=== PATIENT | male | born 1990 | race Caucasian/White ===

== ENCOUNTER 2021-07-29 12:35 | Inpatient (IN) | payer OTHER ==
[2021-07-30 02:20] VITALS: BMI 24.1
[2021-07-30] MEDS ORDERED: MAGNESIUM CITRATE 300 ML BOTTLE PO PRN (03:06)
[2021-07-30] MEDS ORDERED: LOPERAMIDE HCL 2 MG CAPSULE PO PRN (03:06)
[2021-07-30] MEDS ORDERED: guaiFENesin 200 MG/10 ML 10 ML UNIT-DOSE CUPS PO PRN (03:06)
[2021-07-30] MEDS ORDERED: MAGNESIUM HYDROX 2400MG/30ML ORAL SUSPENSION 30 ML CUP PO PRN (03:06)
[2021-07-30] MEDS ORDERED: P-EPHED 60MG/TRIPROLIDI 2.5MG TABLET PO PRN (03:06)
[2021-07-30] MEDS ORDERED: TUBERCULIN PPD 5 TU/0.1ML VIAL ID ONE (04:04)
[2021-07-30] MEDS: CEPHALEXIN MONOHYDRATE 500 MG CAPSULE (UD) PO SCH ×3 (07:08→21:11)
[2021-07-30] MEDS: PRENATAL VITAMINS W/ FOLIC ACID TABLET (FP) PO SCH (10:30)
[2021-07-30] MEDS: NICOTINE 14 MG/24 HOURS TOPICAL PATCH TD SCH (10:31)
[2021-07-30] MEDS: IBUPROFEN 400 MG TABLET (FP) PO PRN (10:32)
[2021-07-30] MEDS: hydrOXYzine PAMOATE 25 MG CAPSULE (FP) PO PRN (10:33)
[2021-07-30] MEDS: BUPRENORPHINE/NALOXONE 8 MG/2 MG FILM PACKET SL SCH ×2 (10:33→21:12)
[2021-07-30 12:20] LABS: HEMATOCRIT 30.9 % (35.4-49); HEMOGLOBIN 10.4 GM/dL (11.7-16.9); MCH 29.4 pg (25.7-33.7); MCHC 33.6 g/dl (32.0-35.9); MEAN CELL VOLUME 87.6 fl (80-96); PLATELET COUNT 352 10^3/uL (134-434); RBC 3.52 M/mm3 (4.00-5.60); RDW 16.7 % (11.9-15.9); WHITE BLOOD COUNT 8.5 K/mm3 (4.0-10.0)
[2021-07-30 12:25] LABS: CALCIUM 9.5 mg/dL (8.5-10.1)
[2021-07-30 12:26] LABS: ALBUMIN 3.1 g/dl (3.4-5.0); BLOOD UREA NITROGEN 19.7 mg/dL (7-18)
[2021-07-30 12:29] LABS: CREATININE 0.8 mg/dL (0.55-1.3)
[2021-07-30 12:31] LABS: BILIRUBIN,TOTAL 0.2 mg/dL (0.2-1); TOT PROT 7.4 g/dl (6.4-8.2)
[2021-07-30] MEDS: GABAPENTIN 400 MG CAPSULE PO SCH ×2 (14:25→21:10)
[2021-07-30] MEDS: METHOCARBAMOL 500 MG TABLET PO SCH ×3 (14:26→21:10)
[2021-07-30 15:08] LABS: SYPHILIS W/ RPR CONF NON-REACTIVE (NONREACTIVE)
[2021-07-30] MEDS ORDERED: INSULIN SLIDING SCALE (NOVOLOG) 1 VIAL SQ SCH (16:30)
[2021-07-30] MEDS: Insulin (LOG) Aspart 100 UNITS/ML VIAL SQ SCH (16:39)
[2021-07-30] MEDS: INSULIN SLIDING SCALE (NOVOLOG) 1 VIAL SQ SCH ×2 (16:40→21:18)
[2021-07-30] MEDS ORDERED: INSULIN (NOVOLOG) ASPART 100 UNITS/ML 10ML VIAL ONE (16:41)
[2021-07-30] MEDS: NICOTINE POLACRILEX 2 MG GUM BC PRN (17:48)
[2021-07-30] MEDS: MELATONIN 5 MG TABLETS PO SCH (21:10)
[2021-07-30] MEDS: THIAMINE HCL 100 MG TABLET (FP) PO SCH (21:11)
[2021-07-30] MEDS: risperiDONE 1 MG TABLET PO SCH (21:12)
[2021-07-30] MEDS ORDERED: MELATONIN 5 MG TABLETS PO SCH (22:00)
[2021-07-30] MEDS ORDERED: INSULIN (LEVEMIR) 100 UNITS/ML UNITS SQ SCH (22:00)
[2021-07-31] MEDS: GABAPENTIN 400 MG CAPSULE PO SCH ×3 (06:29→21:48)
[2021-07-31] MEDS: CEPHALEXIN MONOHYDRATE 500 MG CAPSULE (UD) PO SCH ×3 (06:29→21:47)
[2021-07-31] MEDS: hydrOXYzine PAMOATE 25 MG CAPSULE (FP) PO PRN (06:29)
[2021-07-31] MEDS: Insulin (LOG) Aspart 100 UNITS/ML VIAL SQ SCH ×2 (06:33→16:59)
[2021-07-31] MEDS: INSULIN SLIDING SCALE (NOVOLOG) 1 VIAL SQ SCH ×4 (06:45→21:50)
[2021-07-31] MEDS: NICOTINE POLACRILEX 2 MG GUM BC PRN (09:41)
[2021-07-31] MEDS: NICOTINE 14 MG/24 HOURS TOPICAL PATCH TD SCH (09:41)
[2021-07-31] MEDS: PRENATAL VITAMINS W/ FOLIC ACID TABLET (FP) PO SCH (09:41)
[2021-07-31] MEDS: METHOCARBAMOL 500 MG TABLET PO SCH ×4 (09:41→21:48)
[2021-07-31] MEDS: BUPRENORPHINE/NALOXONE 8 MG/2 MG FILM PACKET SL SCH ×2 (09:41→17:06)
[2021-07-31] MEDS: IBUPROFEN 400 MG TABLET (FP) PO PRN ×2 (09:43→21:49)
[2021-07-31] MEDS: HYDROCHLOROTHIAZIDE 25 MG TABLET (FP) PO SCH (11:58)
[2021-07-31] MEDS ORDERED: INSULIN (NOVOLOG) ASPART 100 UNITS/ML 10ML VIAL ONE ×2 (12:01→21:44)
[2021-07-31] MEDS: COLLOIDAL OATMEAL 1 BAR EACH TP PRN (21:46)
[2021-07-31] MEDS: BACITRACIN 0.9 GM PACKET TP SCH (21:47)
[2021-07-31] MEDS: MELATONIN 5 MG TABLETS PO SCH (21:48)
[2021-07-31] MEDS: risperiDONE 1 MG TABLET PO SCH (21:48)
[2021-07-31] MEDS: THIAMINE HCL 100 MG TABLET (FP) PO SCH (21:48)
[2021-07-31] MEDS: INSULIN (LEVEMIR) 100 UNITS/ML UNITS SQ SCH (21:50)
[2021-08-01] MEDS: CEPHALEXIN MONOHYDRATE 500 MG CAPSULE (UD) PO SCH ×3 (06:29→21:06)
[2021-08-01] MEDS: GABAPENTIN 400 MG CAPSULE PO SCH ×3 (06:29→21:06)
[2021-08-01] MEDS: BUPRENORPHINE/NALOXONE 8 MG/2 MG FILM PACKET SL SCH ×2 (06:29→18:34)
[2021-08-01] MEDS: IBUPROFEN 400 MG TABLET (FP) PO PRN ×3 (06:29→21:07)
[2021-08-01] MEDS: hydrOXYzine PAMOATE 25 MG CAPSULE (FP) PO PRN (06:29)
[2021-08-01] MEDS: Insulin (LOG) Aspart 100 UNITS/ML VIAL SQ SCH ×3 (06:44→16:39)
[2021-08-01] MEDS: INSULIN SLIDING SCALE (NOVOLOG) 1 VIAL SQ SCH ×4 (06:45→21:11)
[2021-08-01] MEDS ORDERED: INSULIN (NOVOLOG) ASPART 100 UNITS/ML 10ML VIAL ONE ×4 (06:49→21:53)
[2021-08-01] MEDS: PRENATAL VITAMINS W/ FOLIC ACID TABLET (FP) PO SCH (09:52)
[2021-08-01] MEDS: METHOCARBAMOL 500 MG TABLET PO SCH ×4 (09:52→21:06)
[2021-08-01] MEDS: BACITRACIN 0.9 GM PACKET TP SCH ×2 (09:52→21:06)
[2021-08-01] MEDS: NICOTINE 14 MG/24 HOURS TOPICAL PATCH TD SCH (09:52)
[2021-08-01] MEDS: HYDROCHLOROTHIAZIDE 25 MG TABLET (FP) PO SCH ×2 (09:53→11:46)
[2021-08-01] MEDS: FERROUS SO4 325 MG TABLET (FP) PO SCH (09:53)
[2021-08-01 11:35] LABS: PH,URINE 6.5 (5.0-8.0); URINE APPEARANCE CLEAR; URINE BILIRUBIN NEGATIVE (NEGATIVE); URINE COLOR YELLOW; URINE GLUCOSE (UA) 3+ (NEGATIVE); URINE KETONE NEGATIVE (NEGATIVE); URINE LEUK ESTERASE NEGATIVE (NEGATIVE); URINE NITRITE NEGATIVE (NEGATIVE); URINE PROTEIN NEGATIVE (NEGATIVE); URINE UROBILINOGEN 0.2 mg/dL (0.2-1.0)
[2021-08-01] MEDS: NICOTINE 10 MG CARTRIDGE (INHALER) IH PRN ×2 (18:34→21:08)
[2021-08-01] MEDS: MELATONIN 5 MG TABLETS PO SCH (21:06)
[2021-08-01] MEDS: risperiDONE 1 MG TABLET PO SCH (21:06)
[2021-08-01] MEDS: THIAMINE HCL 100 MG TABLET (FP) PO SCH (21:06)
[2021-08-01] MEDS: INSULIN (LEVEMIR) 100 UNITS/ML UNITS SQ SCH (21:11)
[2021-08-02] MEDS: BUPRENORPHINE/NALOXONE 8 MG/2 MG FILM PACKET SL SCH ×2 (06:16→17:39)
[2021-08-02] MEDS: CEPHALEXIN MONOHYDRATE 500 MG CAPSULE (UD) PO SCH ×3 (06:17→21:36)
[2021-08-02] MEDS: GABAPENTIN 400 MG CAPSULE PO SCH ×3 (06:19→21:36)
[2021-08-02] MEDS: hydrOXYzine PAMOATE 25 MG CAPSULE (FP) PO PRN (06:20)
[2021-08-02] MEDS: IBUPROFEN 400 MG TABLET (FP) PO PRN ×2 (06:20→18:11)
[2021-08-02] MEDS: Insulin (LOG) Aspart 100 UNITS/ML VIAL SQ SCH ×3 (06:58→17:38)
[2021-08-02] MEDS: INSULIN SLIDING SCALE (NOVOLOG) 1 VIAL SQ SCH ×4 (06:59→21:40)
[2021-08-02] MEDS: NICOTINE 14 MG/24 HOURS TOPICAL PATCH TD SCH (09:29)
[2021-08-02] MEDS: BACITRACIN 0.9 GM PACKET TP SCH ×2 (09:29→21:36)
[2021-08-02] MEDS: HYDROCHLOROTHIAZIDE 25 MG TABLET (FP) PO SCH (09:29)
[2021-08-02] MEDS: METHOCARBAMOL 500 MG TABLET PO SCH ×4 (09:30→21:36)
[2021-08-02] MEDS: PRENATAL VITAMINS W/ FOLIC ACID TABLET (FP) PO SCH (09:30)
[2021-08-02] MEDS: FERROUS SO4 325 MG TABLET (FP) PO SCH (09:30)
[2021-08-02] MEDS: NICOTINE 10 MG CARTRIDGE (INHALER) IH PRN ×3 (09:33→21:39)
[2021-08-02] MEDS ORDERED: INSULIN (NOVOLOG) ASPART 100 UNITS/ML 10ML VIAL ONE ×3 (11:47→21:39)
[2021-08-02] MEDS: risperiDONE 1 MG TABLET PO SCH (21:36)
[2021-08-02] MEDS: MELATONIN 5 MG TABLETS PO SCH (21:37)
[2021-08-02] MEDS: INSULIN (LEVEMIR) 100 UNITS/ML UNITS SQ SCH (21:37)
[2021-08-02] MEDS: THIAMINE HCL 100 MG TABLET (FP) PO SCH (21:38)
[2021-08-03] MEDS: BUPRENORPHINE/NALOXONE 8 MG/2 MG FILM PACKET SL SCH ×2 (06:34→18:49)
[2021-08-03] MEDS: GABAPENTIN 400 MG CAPSULE PO SCH ×3 (06:35→21:08)
[2021-08-03] MEDS: CEPHALEXIN MONOHYDRATE 500 MG CAPSULE (UD) PO SCH (06:35)
[2021-08-03] MEDS: hydrOXYzine PAMOATE 25 MG CAPSULE (FP) PO PRN ×3 (06:35→18:49)
[2021-08-03] MEDS: IBUPROFEN 400 MG TABLET (FP) PO PRN ×3 (06:36→21:10)
[2021-08-03] MEDS: NICOTINE 10 MG CARTRIDGE (INHALER) IH PRN ×3 (06:40→18:50)
[2021-08-03] MEDS: INSULIN SLIDING SCALE (NOVOLOG) 1 VIAL SQ SCH ×4 (06:48→21:13)
[2021-08-03] MEDS: Insulin (LOG) Aspart 100 UNITS/ML VIAL SQ SCH ×3 (06:48→16:37)
[2021-08-03] MEDS: PRENATAL VITAMINS W/ FOLIC ACID TABLET (FP) PO SCH (09:41)
[2021-08-03] MEDS: METHOCARBAMOL 500 MG TABLET PO SCH ×4 (09:41→21:08)
[2021-08-03] MEDS: FERROUS SO4 325 MG TABLET (FP) PO SCH (09:41)
[2021-08-03] MEDS: NICOTINE 14 MG/24 HOURS TOPICAL PATCH TD SCH (09:42)
[2021-08-03] MEDS: BACITRACIN 0.9 GM PACKET TP SCH ×2 (09:42→21:08)
[2021-08-03] MEDS: HYDROCHLOROTHIAZIDE 25 MG TABLET (FP) PO SCH (09:42)
[2021-08-03] MEDS ORDERED: INSULIN (NOVOLOG) ASPART 100 UNITS/ML 10ML VIAL ONE ×3 (12:00→21:52)
[2021-08-03] MEDS: AMOXICILLIN 500 MG CAPSULE (FP) PO SCH ×2 (15:02→21:09)
[2021-08-03] MEDS: ACETAMINOPHEN 325 MG TABLET (FP) PO PRN (18:50)
[2021-08-03] MEDS: THIAMINE HCL 100 MG TABLET (FP) PO SCH (21:08)
[2021-08-03] MEDS: risperiDONE 1 MG TABLET PO SCH (21:08)
[2021-08-03] MEDS: MELATONIN 5 MG TABLETS PO SCH (21:09)
[2021-08-03] MEDS: SULFAMETHOXAZOLE/TRIMETHOPRIM 800MG/160MG D.S. TABLET PO SCH (21:09)
[2021-08-03] MEDS: INSULIN (LEVEMIR) 100 UNITS/ML UNITS SQ SCH (21:13)
[2021-08-04] MEDS ORDERED: INSULIN (NOVOLOG) ASPART 100 UNITS/ML 10ML VIAL ONE ×4 (03:15→21:31)
[2021-08-04] MEDS: BUPRENORPHINE/NALOXONE 8 MG/2 MG FILM PACKET SL SCH ×2 (06:16→17:58)
[2021-08-04] MEDS: AMOXICILLIN 500 MG CAPSULE (FP) PO SCH ×3 (06:16→21:02)
[2021-08-04] MEDS: GABAPENTIN 400 MG CAPSULE PO SCH ×3 (06:16→21:02)
[2021-08-04] MEDS: Insulin (LOG) Aspart 100 UNITS/ML VIAL SQ SCH ×3 (06:17→16:39)
[2021-08-04] MEDS: NICOTINE 10 MG CARTRIDGE (INHALER) IH PRN ×4 (06:50→21:04)
[2021-08-04] MEDS: hydrOXYzine PAMOATE 25 MG CAPSULE (FP) PO PRN ×3 (06:50→17:58)
[2021-08-04] MEDS: INSULIN SLIDING SCALE (NOVOLOG) 1 VIAL SQ SCH ×4 (07:36→21:04)
[2021-08-04] MEDS: IBUPROFEN 400 MG TABLET (FP) PO PRN ×3 (07:38→21:03)
[2021-08-04] MEDS: BACITRACIN 0.9 GM PACKET TP SCH ×2 (10:14→21:02)
[2021-08-04] MEDS: METHOCARBAMOL 500 MG TABLET PO SCH ×4 (10:14→21:02)
[2021-08-04] MEDS: SULFAMETHOXAZOLE/TRIMETHOPRIM 800MG/160MG D.S. TABLET PO SCH ×2 (10:14→21:02)
[2021-08-04] MEDS: PRENATAL VITAMINS W/ FOLIC ACID TABLET (FP) PO SCH (10:14)
[2021-08-04] MEDS: NICOTINE 14 MG/24 HOURS TOPICAL PATCH TD SCH (10:15)
[2021-08-04] MEDS: FERROUS SO4 325 MG TABLET (FP) PO SCH (10:15)
[2021-08-04] MEDS: HYDROCHLOROTHIAZIDE 25 MG TABLET (FP) PO SCH (10:15)
[2021-08-04] MEDS: ACETAMINOPHEN 325 MG TABLET (FP) PO PRN ×2 (10:15→17:59)
[2021-08-04] MEDS: MELATONIN 5 MG TABLETS PO SCH (21:01)
[2021-08-04] MEDS: THIAMINE HCL 100 MG TABLET (FP) PO SCH (21:01)
[2021-08-04] MEDS: risperiDONE 1 MG TABLET PO SCH (21:03)
[2021-08-04] MEDS: INSULIN (LEVEMIR) 100 UNITS/ML UNITS SQ SCH (21:04)
[2021-08-05] MEDS: BUPRENORPHINE/NALOXONE 8 MG/2 MG FILM PACKET SL SCH ×2 (06:59→18:35)
[2021-08-05] MEDS: GABAPENTIN 400 MG CAPSULE PO SCH ×3 (06:59→21:16)
[2021-08-05] MEDS: IBUPROFEN 400 MG TABLET (FP) PO PRN ×2 (06:59→21:17)
[2021-08-05] MEDS: hydrOXYzine PAMOATE 25 MG CAPSULE (FP) PO PRN ×2 (06:59→13:12)
[2021-08-05] MEDS: AMOXICILLIN 500 MG CAPSULE (FP) PO SCH ×3 (06:59→21:16)
[2021-08-05] MEDS: Insulin (LOG) Aspart 100 UNITS/ML VIAL SQ SCH ×3 (07:05→16:26)
[2021-08-05] MEDS: INSULIN SLIDING SCALE (NOVOLOG) 1 VIAL SQ SCH ×4 (07:05→21:18)
[2021-08-05] MEDS: BACITRACIN 0.9 GM PACKET TP SCH ×2 (09:52→21:16)
[2021-08-05] MEDS: PRENATAL VITAMINS W/ FOLIC ACID TABLET (FP) PO SCH (09:52)
[2021-08-05] MEDS: FERROUS SO4 325 MG TABLET (FP) PO SCH (09:52)
[2021-08-05] MEDS: SULFAMETHOXAZOLE/TRIMETHOPRIM 800MG/160MG D.S. TABLET PO SCH ×2 (09:52→21:16)
[2021-08-05] MEDS: NICOTINE 10 MG CARTRIDGE (INHALER) IH PRN ×2 (09:53→16:24)
[2021-08-05] MEDS: HYDROCHLOROTHIAZIDE 25 MG TABLET (FP) PO SCH (09:53)
[2021-08-05] MEDS: METHOCARBAMOL 500 MG TABLET PO SCH ×4 (09:53→21:17)
[2021-08-05] MEDS: NICOTINE 14 MG/24 HOURS TOPICAL PATCH TD SCH (09:53)
[2021-08-05] MEDS: ACETAMINOPHEN 325 MG TABLET (FP) PO PRN ×2 (09:54→16:25)
[2021-08-05] MEDS ORDERED: INSULIN (NOVOLOG) ASPART 100 UNITS/ML 10ML VIAL ONE ×4 (12:05→21:49)
[2021-08-05] MEDS: MELATONIN 5 MG TABLETS PO SCH (21:16)
[2021-08-05] MEDS: THIAMINE HCL 100 MG TABLET (FP) PO SCH (21:16)
[2021-08-05] MEDS: INSULIN (LEVEMIR) 100 UNITS/ML UNITS SQ SCH (21:18)
[2021-08-05] MEDS: risperiDONE 1 MG TABLET PO SCH (21:18)
[2021-08-06] MEDS: BUPRENORPHINE/NALOXONE 8 MG/2 MG FILM PACKET SL SCH ×2 (06:43→18:46)
[2021-08-06] MEDS: AMOXICILLIN 500 MG CAPSULE (FP) PO SCH ×3 (06:43→21:24)
[2021-08-06] MEDS: GABAPENTIN 400 MG CAPSULE PO SCH ×3 (06:43→21:24)
[2021-08-06] MEDS: IBUPROFEN 400 MG TABLET (FP) PO PRN ×2 (06:44→18:46)
[2021-08-06] MEDS: hydrOXYzine PAMOATE 25 MG CAPSULE (FP) PO PRN ×3 (06:44→13:49)
[2021-08-06] MEDS: INSULIN SLIDING SCALE (NOVOLOG) 1 VIAL SQ SCH ×4 (07:08→21:28)
[2021-08-06] MEDS: Insulin (LOG) Aspart 100 UNITS/ML VIAL SQ SCH ×3 (07:08→16:29)
[2021-08-06] MEDS: PRENATAL VITAMINS W/ FOLIC ACID TABLET (FP) PO SCH (10:25)
[2021-08-06] MEDS: METHOCARBAMOL 500 MG TABLET PO SCH ×4 (10:26→21:24)
[2021-08-06] MEDS: BACITRACIN 0.9 GM PACKET TP SCH ×2 (10:26→21:24)
[2021-08-06] MEDS: NICOTINE 14 MG/24 HOURS TOPICAL PATCH TD SCH (10:26)
[2021-08-06] MEDS: HYDROCHLOROTHIAZIDE 25 MG TABLET (FP) PO SCH (10:26)
[2021-08-06] MEDS: NICOTINE 10 MG CARTRIDGE (INHALER) IH PRN ×2 (10:26→18:48)
[2021-08-06] MEDS: FERROUS SO4 325 MG TABLET (FP) PO SCH (10:26)
[2021-08-06] MEDS: SULFAMETHOXAZOLE/TRIMETHOPRIM 800MG/160MG D.S. TABLET PO SCH ×2 (10:26→21:26)
[2021-08-06] MEDS ORDERED: INSULIN (NOVOLOG) ASPART 100 UNITS/ML 10ML VIAL ONE ×3 (11:59→21:31)
[2021-08-06] MEDS ORDERED: FLU VACC QS2021-22(6MOS UP)/PF 60 MCG/0.5 ML SYRINGE IM ONE (12:00)
[2021-08-06] MEDS: ACETAMINOPHEN 325 MG TABLET (FP) PO PRN ×2 (13:48→21:25)
[2021-08-06] MEDS: MELATONIN 5 MG TABLETS PO SCH (21:24)
[2021-08-06] MEDS: risperiDONE 1 MG TABLET PO SCH (21:24)
[2021-08-06] MEDS: INSULIN (LEVEMIR) 100 UNITS/ML UNITS SQ SCH (21:28)
[2021-08-06] MEDS: THIAMINE HCL 100 MG TABLET (FP) PO SCH (21:32)
[2021-08-07] MEDS ORDERED: INSULIN (NOVOLOG) ASPART 100 UNITS/ML 10ML VIAL ONE ×3 (03:07→12:02)
[2021-08-07] MEDS: AMOXICILLIN 500 MG CAPSULE (FP) PO SCH ×3 (06:27→21:11)
[2021-08-07] MEDS: GABAPENTIN 400 MG CAPSULE PO SCH ×3 (06:27→21:11)
[2021-08-07] MEDS: hydrOXYzine PAMOATE 25 MG CAPSULE (FP) PO PRN ×3 (06:27→13:11)
[2021-08-07] MEDS: IBUPROFEN 400 MG TABLET (FP) PO PRN ×3 (06:27→21:13)
[2021-08-07] MEDS: Insulin (LOG) Aspart 100 UNITS/ML VIAL SQ SCH ×3 (06:27→17:08)
[2021-08-07] MEDS: BUPRENORPHINE/NALOXONE 8 MG/2 MG FILM PACKET SL SCH ×2 (06:27→18:16)
[2021-08-07] MEDS: INSULIN SLIDING SCALE (NOVOLOG) 1 VIAL SQ SCH ×4 (07:40→21:16)
[2021-08-07] MEDS: NICOTINE 10 MG CARTRIDGE (INHALER) IH PRN ×5 (07:42→21:11)
[2021-08-07] MEDS: FERROUS SO4 325 MG TABLET (FP) PO SCH (09:50)
[2021-08-07] MEDS: METHOCARBAMOL 500 MG TABLET PO SCH ×4 (09:50→21:12)
[2021-08-07] MEDS: BACITRACIN 0.9 GM PACKET TP SCH ×2 (09:50→21:11)
[2021-08-07] MEDS: HYDROCHLOROTHIAZIDE 25 MG TABLET (FP) PO SCH (09:51)
[2021-08-07] MEDS: NICOTINE 14 MG/24 HOURS TOPICAL PATCH TD SCH (09:51)
[2021-08-07] MEDS: SULFAMETHOXAZOLE/TRIMETHOPRIM 800MG/160MG D.S. TABLET PO SCH ×2 (09:51→21:12)
[2021-08-07] MEDS: PRENATAL VITAMINS W/ FOLIC ACID TABLET (FP) PO SCH (09:51)
[2021-08-07] MEDS: ACETAMINOPHEN 325 MG TABLET (FP) PO PRN (17:11)
[2021-08-07] MEDS: MELATONIN 5 MG TABLETS PO SCH (21:11)
[2021-08-07] MEDS: THIAMINE HCL 100 MG TABLET (FP) PO SCH (21:11)
[2021-08-07] MEDS: risperiDONE 1 MG TABLET PO SCH (21:12)
[2021-08-07] MEDS: INSULIN (LEVEMIR) 100 UNITS/ML UNITS SQ SCH (21:17)
[2021-08-08] MEDS ORDERED: INSULIN (NOVOLOG) ASPART 100 UNITS/ML 10ML VIAL ONE ×5 (03:11→21:37)
[2021-08-08] MEDS: BUPRENORPHINE/NALOXONE 8 MG/2 MG FILM PACKET SL SCH ×2 (06:36→18:34)
[2021-08-08] MEDS: Insulin (LOG) Aspart 100 UNITS/ML VIAL SQ SCH ×3 (06:36→16:49)
[2021-08-08] MEDS: AMOXICILLIN 500 MG CAPSULE (FP) PO SCH ×3 (06:36→21:33)
[2021-08-08] MEDS: GABAPENTIN 400 MG CAPSULE PO SCH ×3 (06:36→21:33)
[2021-08-08] MEDS: IBUPROFEN 400 MG TABLET (FP) PO PRN ×2 (06:37→21:38)
[2021-08-08] MEDS: hydrOXYzine PAMOATE 25 MG CAPSULE (FP) PO PRN ×2 (06:37→13:42)
[2021-08-08] MEDS: NICOTINE 10 MG CARTRIDGE (INHALER) IH PRN ×3 (06:38→18:34)
[2021-08-08] MEDS: INSULIN SLIDING SCALE (NOVOLOG) 1 VIAL SQ SCH ×4 (07:44→21:38)
[2021-08-08] MEDS: NICOTINE 14 MG/24 HOURS TOPICAL PATCH TD SCH (09:41)
[2021-08-08] MEDS: BACITRACIN 0.9 GM PACKET TP SCH ×2 (09:41→21:34)
[2021-08-08] MEDS: METHOCARBAMOL 500 MG TABLET PO SCH ×4 (09:41→21:33)
[2021-08-08] MEDS: PRENATAL VITAMINS W/ FOLIC ACID TABLET (FP) PO SCH (09:41)
[2021-08-08] MEDS: FERROUS SO4 325 MG TABLET (FP) PO SCH (09:41)
[2021-08-08] MEDS: SULFAMETHOXAZOLE/TRIMETHOPRIM 800MG/160MG D.S. TABLET PO SCH (09:41)
[2021-08-08] MEDS: ACETAMINOPHEN 325 MG TABLET (FP) PO PRN (13:42)
[2021-08-08] MEDS: risperiDONE 1 MG TABLET PO SCH (21:33)
[2021-08-08] MEDS: MELATONIN 5 MG TABLETS PO SCH (21:34)
[2021-08-08] MEDS: THIAMINE HCL 100 MG TABLET (FP) PO SCH (21:34)
[2021-08-08] MEDS: INSULIN (LEVEMIR) 100 UNITS/ML UNITS SQ SCH (21:39)
[2021-08-09] MEDS ORDERED: INSULIN (NOVOLOG) ASPART 100 UNITS/ML 10ML VIAL ONE ×5 (02:47→22:09)
[2021-08-09] MEDS: BUPRENORPHINE/NALOXONE 8 MG/2 MG FILM PACKET SL SCH ×2 (06:06→18:57)
[2021-08-09] MEDS: AMOXICILLIN 500 MG CAPSULE (FP) PO SCH ×3 (06:06→21:14)
[2021-08-09] MEDS: hydrOXYzine PAMOATE 25 MG CAPSULE (FP) PO PRN ×2 (06:06→13:20)
[2021-08-09] MEDS: GABAPENTIN 400 MG CAPSULE PO SCH ×3 (06:06→21:15)
[2021-08-09] MEDS: IBUPROFEN 400 MG TABLET (FP) PO PRN ×2 (06:07→21:16)
[2021-08-09] MEDS: Insulin (LOG) Aspart 100 UNITS/ML VIAL SQ SCH ×3 (06:07→16:55)
[2021-08-09] MEDS: NICOTINE 10 MG CARTRIDGE (INHALER) IH PRN ×4 (06:07→16:54)
[2021-08-09] MEDS: INSULIN SLIDING SCALE (NOVOLOG) 1 VIAL SQ SCH ×4 (08:08→21:19)
[2021-08-09] MEDS: PRENATAL VITAMINS W/ FOLIC ACID TABLET (FP) PO SCH (09:31)
[2021-08-09] MEDS: NICOTINE 14 MG/24 HOURS TOPICAL PATCH TD SCH (09:31)
[2021-08-09] MEDS: FERROUS SO4 325 MG TABLET (FP) PO SCH (09:31)
[2021-08-09] MEDS: BACITRACIN 0.9 GM PACKET TP SCH ×2 (09:31→21:14)
[2021-08-09] MEDS: METHOCARBAMOL 500 MG TABLET PO SCH ×4 (09:31→21:14)
[2021-08-09] MEDS: risperiDONE 1 MG TABLET PO SCH (21:14)
[2021-08-09] MEDS: MELATONIN 5 MG TABLETS PO SCH (21:14)
[2021-08-09] MEDS: THIAMINE HCL 100 MG TABLET (FP) PO SCH (21:15)
[2021-08-09] MEDS: INSULIN (LEVEMIR) 100 UNITS/ML UNITS SQ SCH (21:20)
[2021-08-10] MEDS: BUPRENORPHINE/NALOXONE 8 MG/2 MG FILM PACKET SL SCH ×2 (06:28→18:05)
[2021-08-10] MEDS: GABAPENTIN 400 MG CAPSULE PO SCH ×3 (06:29→21:32)
[2021-08-10] MEDS: IBUPROFEN 400 MG TABLET (FP) PO PRN ×2 (06:29→21:38)
[2021-08-10] MEDS: hydrOXYzine PAMOATE 25 MG CAPSULE (FP) PO PRN ×3 (06:29→15:24)
[2021-08-10] MEDS: AMOXICILLIN 500 MG CAPSULE (FP) PO SCH (06:29)
[2021-08-10] MEDS: INSULIN SLIDING SCALE (NOVOLOG) 1 VIAL SQ SCH ×4 (06:53→21:39)
[2021-08-10] MEDS: Insulin (LOG) Aspart 100 UNITS/ML VIAL SQ SCH ×3 (06:53→16:53)
[2021-08-10] MEDS: FERROUS SO4 325 MG TABLET (FP) PO SCH (09:47)
[2021-08-10] MEDS: PRENATAL VITAMINS W/ FOLIC ACID TABLET (FP) PO SCH (09:47)
[2021-08-10] MEDS: BACITRACIN 0.9 GM PACKET TP SCH ×2 (09:47→21:32)
[2021-08-10] MEDS: NICOTINE 14 MG/24 HOURS TOPICAL PATCH TD SCH (09:47)
[2021-08-10] MEDS: METHOCARBAMOL 500 MG TABLET PO SCH ×4 (09:47→21:32)
[2021-08-10] MEDS: NICOTINE 10 MG CARTRIDGE (INHALER) IH PRN ×2 (09:48→15:22)
[2021-08-10] MEDS ORDERED: INSULIN (NOVOLOG) ASPART 100 UNITS/ML 10ML VIAL ONE ×2 (11:42→21:38)
[2021-08-10] MEDS: METHYL SALICYLATE/MENTHOL OINT 30 GM TUBE TP SCH ×2 (15:25→21:33)
[2021-08-10] MEDS: risperiDONE 1 MG TABLET PO SCH (21:32)
[2021-08-10] MEDS: NYSTATIN POWDER 100,000 UNITS/GM - 15 GM TOPICAL POWDER TP SCH (21:33)
[2021-08-10] MEDS: THIAMINE HCL 100 MG TABLET (FP) PO SCH (21:33)
[2021-08-10] MEDS: MELATONIN 5 MG TABLETS PO SCH (21:33)
[2021-08-10] MEDS: INSULIN (LEVEMIR) 100 UNITS/ML UNITS SQ SCH (21:40)
[2021-08-11] MEDS: BUPRENORPHINE/NALOXONE 8 MG/2 MG FILM PACKET SL SCH ×2 (06:18→18:27)
[2021-08-11] MEDS: NICOTINE 10 MG CARTRIDGE (INHALER) IH PRN ×4 (06:19→20:42)
[2021-08-11] MEDS: GABAPENTIN 400 MG CAPSULE PO SCH ×3 (06:19→21:07)
[2021-08-11] MEDS: hydrOXYzine PAMOATE 25 MG CAPSULE (FP) PO PRN ×3 (06:19→15:01)
[2021-08-11] MEDS: IBUPROFEN 400 MG TABLET (FP) PO PRN ×2 (06:19→21:09)
[2021-08-11] MEDS: Insulin (LOG) Aspart 100 UNITS/ML VIAL SQ SCH ×3 (06:24→16:52)
[2021-08-11] MEDS: INSULIN SLIDING SCALE (NOVOLOG) 1 VIAL SQ SCH ×4 (06:24→21:10)
[2021-08-11] MEDS: NICOTINE 14 MG/24 HOURS TOPICAL PATCH TD SCH (09:46)
[2021-08-11] MEDS: METHYL SALICYLATE/MENTHOL OINT 30 GM TUBE TP SCH ×2 (09:46→21:11)
[2021-08-11] MEDS: NYSTATIN POWDER 100,000 UNITS/GM - 15 GM TOPICAL POWDER TP SCH ×2 (09:46→21:11)
[2021-08-11] MEDS: PRENATAL VITAMINS W/ FOLIC ACID TABLET (FP) PO SCH (09:46)
[2021-08-11] MEDS: FERROUS SO4 325 MG TABLET (FP) PO SCH (09:46)
[2021-08-11] MEDS: METHOCARBAMOL 500 MG TABLET PO SCH ×4 (09:46→21:07)
[2021-08-11] MEDS: BACITRACIN 0.9 GM PACKET TP SCH ×2 (09:46→21:11)
[2021-08-11] MEDS ORDERED: INSULIN (NOVOLOG) ASPART 100 UNITS/ML 10ML VIAL ONE ×2 (11:36→21:37)
[2021-08-11] MEDS: MELATONIN 5 MG TABLETS PO SCH (21:07)
[2021-08-11] MEDS: THIAMINE HCL 100 MG TABLET (FP) PO SCH (21:07)
[2021-08-11] MEDS: risperiDONE 1 MG TABLET PO SCH (21:07)
[2021-08-11] MEDS: INSULIN (LEVEMIR) 100 UNITS/ML UNITS SQ SCH (21:10)
[2021-08-12] MEDS ORDERED: INSULIN (NOVOLOG) ASPART 100 UNITS/ML 10ML VIAL ONE ×3 (03:05→21:55)
[2021-08-12] MEDS: BUPRENORPHINE/NALOXONE 8 MG/2 MG FILM PACKET SL SCH ×2 (06:21→18:14)
[2021-08-12] MEDS: GABAPENTIN 400 MG CAPSULE PO SCH ×3 (06:21→21:20)
[2021-08-12] MEDS: IBUPROFEN 400 MG TABLET (FP) PO PRN (06:21)
[2021-08-12] MEDS: hydrOXYzine PAMOATE 25 MG CAPSULE (FP) PO PRN ×3 (06:21→13:51)
[2021-08-12] MEDS: Insulin (LOG) Aspart 100 UNITS/ML VIAL SQ SCH ×3 (06:38→16:48)
[2021-08-12] MEDS: INSULIN SLIDING SCALE (NOVOLOG) 1 VIAL SQ SCH ×4 (06:38→21:25)
[2021-08-12] MEDS ORDERED: FUROSEMIDE 40 MG TABLET (FP) PO ONE (08:52)
[2021-08-12] MEDS: FERROUS SO4 325 MG TABLET (FP) PO SCH (10:25)
[2021-08-12] MEDS: PRENATAL VITAMINS W/ FOLIC ACID TABLET (FP) PO SCH (10:25)
[2021-08-12] MEDS: METHOCARBAMOL 500 MG TABLET PO SCH ×4 (10:25→21:20)
[2021-08-12] MEDS: METHYL SALICYLATE/MENTHOL OINT 30 GM TUBE TP SCH ×2 (10:26→21:20)
[2021-08-12] MEDS: BACITRACIN 0.9 GM PACKET TP SCH ×2 (10:26→21:21)
[2021-08-12] MEDS: NICOTINE 14 MG/24 HOURS TOPICAL PATCH TD SCH (10:27)
[2021-08-12] MEDS: NYSTATIN POWDER 100,000 UNITS/GM - 15 GM TOPICAL POWDER TP SCH ×2 (10:27→21:20)
[2021-08-12] MEDS: NICOTINE 10 MG CARTRIDGE (INHALER) IH PRN ×3 (10:27→21:24)
[2021-08-12] MEDS: risperiDONE 1 MG TABLET PO SCH (21:20)
[2021-08-12] MEDS: THIAMINE HCL 100 MG TABLET (FP) PO SCH (21:20)
[2021-08-12] MEDS: MELATONIN 5 MG TABLETS PO SCH (21:21)
[2021-08-12] MEDS: COLLOIDAL OATMEAL 1 BAR EACH TP PRN (21:24)
[2021-08-12] MEDS: INSULIN (LEVEMIR) 100 UNITS/ML UNITS SQ SCH (21:25)
[2021-08-13] MEDS: IBUPROFEN 400 MG TABLET (FP) PO PRN ×2 (06:16→21:04)
[2021-08-13] MEDS: GABAPENTIN 400 MG CAPSULE PO SCH ×4 (06:16→21:03)
[2021-08-13] MEDS: BUPRENORPHINE/NALOXONE 8 MG/2 MG FILM PACKET SL SCH ×2 (06:16→17:01)
[2021-08-13] MEDS: hydrOXYzine PAMOATE 25 MG CAPSULE (FP) PO PRN ×2 (06:16→09:45)
[2021-08-13] MEDS: Insulin (LOG) Aspart 100 UNITS/ML VIAL SQ SCH ×3 (06:18→16:59)
[2021-08-13] MEDS: NICOTINE 10 MG CARTRIDGE (INHALER) IH PRN ×4 (06:18→21:05)
[2021-08-13] MEDS: INSULIN SLIDING SCALE (NOVOLOG) 1 VIAL SQ SCH ×4 (06:19→21:05)
[2021-08-13] MEDS: BACITRACIN 0.9 GM PACKET TP SCH ×2 (09:43→21:03)
[2021-08-13] MEDS: METHOCARBAMOL 500 MG TABLET PO SCH ×5 (09:43→21:03)
[2021-08-13] MEDS: NICOTINE 14 MG/24 HOURS TOPICAL PATCH TD SCH (09:43)
[2021-08-13] MEDS: FERROUS SO4 325 MG TABLET (FP) PO SCH (09:43)
[2021-08-13] MEDS: METHYL SALICYLATE/MENTHOL OINT 30 GM TUBE TP SCH ×2 (09:44→21:06)
[2021-08-13] MEDS: NYSTATIN POWDER 100,000 UNITS/GM - 15 GM TOPICAL POWDER TP SCH ×2 (09:44→21:05)
[2021-08-13] MEDS: ACETAMINOPHEN 325 MG TABLET (FP) PO PRN (09:46)
[2021-08-13] MEDS: PRENATAL VITAMINS W/ FOLIC ACID TABLET (FP) PO SCH (10:35)
[2021-08-13] MEDS ORDERED: INSULIN (NOVOLOG) ASPART 100 UNITS/ML 10ML VIAL ONE ×2 (11:36→23:20)
[2021-08-13] MEDS: risperiDONE 1 MG TABLET PO SCH (21:03)
[2021-08-13] MEDS: THIAMINE HCL 100 MG TABLET (FP) PO SCH (21:04)
[2021-08-13] MEDS: MELATONIN 5 MG TABLETS PO SCH (21:05)
[2021-08-13] MEDS: INSULIN (LEVEMIR) 100 UNITS/ML UNITS SQ SCH (21:05)
[2021-08-14] MEDS ORDERED: INSULIN (NOVOLOG) ASPART 100 UNITS/ML 10ML VIAL ONE ×4 (03:10→21:30)
[2021-08-14] MEDS: GABAPENTIN 400 MG CAPSULE PO SCH ×3 (06:53→21:31)
[2021-08-14] MEDS: BUPRENORPHINE/NALOXONE 8 MG/2 MG FILM PACKET SL SCH ×2 (06:56→17:58)
[2021-08-14] MEDS: INSULIN SLIDING SCALE (NOVOLOG) 1 VIAL SQ SCH ×4 (07:00→21:33)
[2021-08-14] MEDS: Insulin (LOG) Aspart 100 UNITS/ML VIAL SQ SCH ×3 (07:00→17:20)
[2021-08-14] MEDS: IBUPROFEN 400 MG TABLET (FP) PO PRN ×2 (07:01→21:32)
[2021-08-14] MEDS: hydrOXYzine PAMOATE 25 MG CAPSULE (FP) PO PRN ×2 (07:01→14:23)
[2021-08-14] MEDS: NICOTINE 10 MG CARTRIDGE (INHALER) IH PRN ×3 (07:03→14:28)
[2021-08-14] MEDS: PRENATAL VITAMINS W/ FOLIC ACID TABLET (FP) PO SCH (09:51)
[2021-08-14] MEDS: BACITRACIN 0.9 GM PACKET TP SCH ×2 (09:51→21:33)
[2021-08-14] MEDS: METHYL SALICYLATE/MENTHOL OINT 30 GM TUBE TP SCH ×2 (09:52→21:33)
[2021-08-14] MEDS: FERROUS SO4 325 MG TABLET (FP) PO SCH (09:52)
[2021-08-14] MEDS: NYSTATIN POWDER 100,000 UNITS/GM - 15 GM TOPICAL POWDER TP SCH ×2 (09:52→21:33)
[2021-08-14] MEDS: NICOTINE 14 MG/24 HOURS TOPICAL PATCH TD SCH (09:52)
[2021-08-14] MEDS: METHOCARBAMOL 500 MG TABLET PO SCH ×4 (09:52→21:31)
[2021-08-14] MEDS: MAG HYDROX/AL HYDROX/SIMETH 30 ML UNIT-DOSE CUP PO PRN (11:56)
[2021-08-14] MEDS: ACETAMINOPHEN 325 MG TABLET (FP) PO PRN (14:24)
[2021-08-14] MEDS ORDERED: PT OWN MED DRAWER 7, Y5N ONE (15:27)
[2021-08-14] MEDS: risperiDONE 1 MG TABLET PO SCH (21:30)
[2021-08-14] MEDS: THIAMINE HCL 100 MG TABLET (FP) PO SCH (21:32)
[2021-08-14] MEDS: MELATONIN 5 MG TABLETS PO SCH (21:33)
[2021-08-14] MEDS: INSULIN (LEVEMIR) 100 UNITS/ML UNITS SQ SCH (21:33)
[2021-08-15] MEDS: IBUPROFEN 400 MG TABLET (FP) PO PRN (06:22)
[2021-08-15] MEDS: BUPRENORPHINE/NALOXONE 8 MG/2 MG FILM PACKET SL SCH ×2 (06:22→18:57)
[2021-08-15] MEDS: hydrOXYzine PAMOATE 25 MG CAPSULE (FP) PO PRN (06:22)
[2021-08-15] MEDS: GABAPENTIN 400 MG CAPSULE PO SCH ×3 (06:22→21:07)
[2021-08-15] MEDS: INSULIN SLIDING SCALE (NOVOLOG) 1 VIAL SQ SCH ×4 (06:26→21:10)
[2021-08-15] MEDS: Insulin (LOG) Aspart 100 UNITS/ML VIAL SQ SCH ×3 (06:26→16:30)
[2021-08-15] MEDS: BACITRACIN 0.9 GM PACKET TP SCH ×2 (09:21→21:10)
[2021-08-15] MEDS: METHOCARBAMOL 500 MG TABLET PO SCH ×4 (09:21→21:07)
[2021-08-15] MEDS: NICOTINE 14 MG/24 HOURS TOPICAL PATCH TD SCH (09:21)
[2021-08-15] MEDS: FUROSEMIDE 20 MG TABLET (FP) PO SCH (09:21)
[2021-08-15] MEDS: PRENATAL VITAMINS W/ FOLIC ACID TABLET (FP) PO SCH (09:21)
[2021-08-15] MEDS: METHYL SALICYLATE/MENTHOL OINT 30 GM TUBE TP SCH ×2 (09:21→21:10)
[2021-08-15] MEDS: FERROUS SO4 325 MG TABLET (FP) PO SCH (09:22)
[2021-08-15] MEDS: NYSTATIN POWDER 100,000 UNITS/GM - 15 GM TOPICAL POWDER TP SCH ×2 (09:22→21:10)
[2021-08-15] MEDS ORDERED: INSULIN (NOVOLOG) ASPART 100 UNITS/ML 10ML VIAL ONE ×3 (11:46→21:37)
[2021-08-15] MEDS: NICOTINE 10 MG CARTRIDGE (INHALER) IH PRN ×3 (11:48→21:08)
[2021-08-15] MEDS: THIAMINE HCL 100 MG TABLET (FP) PO SCH (21:07)
[2021-08-15] MEDS: risperiDONE 1 MG TABLET PO SCH (21:07)
[2021-08-15] MEDS: MELATONIN 5 MG TABLETS PO SCH (21:07)
[2021-08-15] MEDS: INSULIN (LEVEMIR) 100 UNITS/ML UNITS SQ SCH (21:10)
[2021-08-16] MEDS: GABAPENTIN 400 MG CAPSULE PO SCH ×3 (06:50→21:25)
[2021-08-16] MEDS: BUPRENORPHINE/NALOXONE 8 MG/2 MG FILM PACKET SL SCH ×2 (06:50→18:22)
[2021-08-16] MEDS: IBUPROFEN 400 MG TABLET (FP) PO PRN ×2 (06:51→21:29)
[2021-08-16] MEDS: hydrOXYzine PAMOATE 25 MG CAPSULE (FP) PO PRN (06:51)
[2021-08-16] MEDS: NICOTINE 10 MG CARTRIDGE (INHALER) IH PRN ×4 (06:52→21:30)
[2021-08-16] MEDS ORDERED: INSULIN (NOVOLOG) ASPART 100 UNITS/ML 10ML VIAL ONE ×4 (07:04→21:33)
[2021-08-16] MEDS: INSULIN SLIDING SCALE (NOVOLOG) 1 VIAL SQ SCH ×4 (07:12→21:30)
[2021-08-16] MEDS: Insulin (LOG) Aspart 100 UNITS/ML VIAL SQ SCH ×3 (07:12→16:26)
[2021-08-16] MEDS: PRENATAL VITAMINS W/ FOLIC ACID TABLET (FP) PO SCH (09:53)
[2021-08-16] MEDS: NICOTINE 14 MG/24 HOURS TOPICAL PATCH TD SCH (09:54)
[2021-08-16] MEDS: FERROUS SO4 325 MG TABLET (FP) PO SCH (09:54)
[2021-08-16] MEDS: FUROSEMIDE 20 MG TABLET (FP) PO SCH (09:54)
[2021-08-16] MEDS: METHOCARBAMOL 500 MG TABLET PO SCH ×4 (09:54→21:25)
[2021-08-16] MEDS: METHYL SALICYLATE/MENTHOL OINT 30 GM TUBE TP SCH ×2 (09:54→21:30)
[2021-08-16] MEDS: BACITRACIN 0.9 GM PACKET TP SCH ×2 (09:54→21:30)
[2021-08-16] MEDS: NYSTATIN POWDER 100,000 UNITS/GM - 15 GM TOPICAL POWDER TP SCH ×2 (09:54→21:31)
[2021-08-16] MEDS: risperiDONE 1 MG TABLET PO SCH (21:25)
[2021-08-16] MEDS: THIAMINE HCL 100 MG TABLET (FP) PO SCH (21:25)
[2021-08-16] MEDS: MELATONIN 5 MG TABLETS PO SCH (21:25)
[2021-08-16] MEDS: INSULIN (LEVEMIR) 100 UNITS/ML UNITS SQ SCH (21:30)
[2021-08-17] MEDS: BUPRENORPHINE/NALOXONE 8 MG/2 MG FILM PACKET SL SCH ×2 (06:07→17:09)
[2021-08-17] MEDS: GABAPENTIN 400 MG CAPSULE PO SCH ×3 (06:07→21:16)
[2021-08-17] MEDS: IBUPROFEN 400 MG TABLET (FP) PO PRN ×2 (06:07→21:16)
[2021-08-17] MEDS: hydrOXYzine PAMOATE 25 MG CAPSULE (FP) PO PRN (06:07)
[2021-08-17] MEDS: NICOTINE 10 MG CARTRIDGE (INHALER) IH PRN ×3 (06:10→14:17)
[2021-08-17] MEDS: INSULIN SLIDING SCALE (NOVOLOG) 1 VIAL SQ SCH ×4 (06:47→21:18)
[2021-08-17] MEDS: Insulin (LOG) Aspart 100 UNITS/ML VIAL SQ SCH ×3 (06:47→17:10)
[2021-08-17] MEDS ORDERED: INSULIN (NOVOLOG) ASPART 100 UNITS/ML 10ML VIAL ONE ×4 (06:54→21:52)
[2021-08-17] MEDS: BACITRACIN 0.9 GM PACKET TP SCH ×2 (11:01→21:15)
[2021-08-17] MEDS: FERROUS SO4 325 MG TABLET (FP) PO SCH (11:01)
[2021-08-17] MEDS: METHOCARBAMOL 500 MG TABLET PO SCH ×4 (11:01→21:16)
[2021-08-17] MEDS: PRENATAL VITAMINS W/ FOLIC ACID TABLET (FP) PO SCH (11:01)
[2021-08-17] MEDS: NICOTINE 14 MG/24 HOURS TOPICAL PATCH TD SCH (11:02)
[2021-08-17] MEDS: NYSTATIN POWDER 100,000 UNITS/GM - 15 GM TOPICAL POWDER TP SCH ×2 (11:03→21:18)
[2021-08-17] MEDS: METHYL SALICYLATE/MENTHOL OINT 30 GM TUBE TP SCH ×2 (11:03→21:18)
[2021-08-17] MEDS: risperiDONE 1 MG TABLET PO SCH (21:15)
[2021-08-17] MEDS: MELATONIN 5 MG TABLETS PO SCH (21:16)
[2021-08-17] MEDS: THIAMINE HCL 100 MG TABLET (FP) PO SCH (21:16)
[2021-08-17] MEDS: INSULIN (LEVEMIR) 100 UNITS/ML UNITS SQ SCH (21:18)
[2021-08-18] MEDS ORDERED: INSULIN (NOVOLOG) ASPART 100 UNITS/ML 10ML VIAL ONE ×5 (02:48→21:30)
[2021-08-18] MEDS: GABAPENTIN 400 MG CAPSULE PO SCH ×3 (06:23→21:23)
[2021-08-18] MEDS: Insulin (LOG) Aspart 100 UNITS/ML VIAL SQ SCH ×3 (06:23→16:46)
[2021-08-18] MEDS: BUPRENORPHINE/NALOXONE 8 MG/2 MG FILM PACKET SL SCH ×2 (06:23→18:03)
[2021-08-18] MEDS: IBUPROFEN 400 MG TABLET (FP) PO PRN ×2 (06:24→21:25)
[2021-08-18] MEDS: hydrOXYzine PAMOATE 25 MG CAPSULE (FP) PO PRN ×3 (06:24→13:33)
[2021-08-18] MEDS: INSULIN SLIDING SCALE (NOVOLOG) 1 VIAL SQ SCH ×4 (06:28→21:28)
[2021-08-18] MEDS: METHOCARBAMOL 500 MG TABLET PO SCH ×4 (10:01→21:23)
[2021-08-18] MEDS: NYSTATIN POWDER 100,000 UNITS/GM - 15 GM TOPICAL POWDER TP SCH ×2 (10:01→22:50)
[2021-08-18] MEDS: METHYL SALICYLATE/MENTHOL OINT 30 GM TUBE TP SCH ×2 (10:01→21:28)
[2021-08-18] MEDS: PRENATAL VITAMINS W/ FOLIC ACID TABLET (FP) PO SCH (10:01)
[2021-08-18] MEDS: FERROUS SO4 325 MG TABLET (FP) PO SCH (10:01)
[2021-08-18] MEDS: NICOTINE 10 MG CARTRIDGE (INHALER) IH PRN ×3 (10:01→16:13)
[2021-08-18] MEDS: BACITRACIN 0.9 GM PACKET TP SCH ×2 (10:01→21:28)
[2021-08-18] MEDS: NICOTINE 14 MG/24 HOURS TOPICAL PATCH TD SCH (10:01)
[2021-08-18 11:21] LABS: BASO % 1.3 % (0-2.0); HEMATOCRIT 33.6 % (35.4-49); HEMOGLOBIN 11.4 GM/dL (11.7-16.9); LYMPH % 42.8 % (8-40); MCH 29.6 pg (25.7-33.7); MCHC 33.8 g/dl (32.0-35.9); MEAN CELL VOLUME 87.6 fl (80-96); MEAN PLT VOLUME 10.2 fl (7.5-11.1); MONO % 5.3 % (3.8-10.2); NEUT % 46.6 % (42.8-82.8); PLATELET COUNT 329 10^3/uL (134-434); RBC 3.84 M/mm3 (4.00-5.60); RDW 15.6 % (11.9-15.9); WHITE BLOOD COUNT 9.1 K/mm3 (4.0-10.0)
[2021-08-18] MEDS: MELATONIN 5 MG TABLETS PO SCH (21:23)
[2021-08-18] MEDS: risperiDONE 1 MG TABLET PO SCH (21:23)
[2021-08-18] MEDS: THIAMINE HCL 100 MG TABLET (FP) PO SCH (21:23)
[2021-08-18] MEDS: INSULIN (LEVEMIR) 100 UNITS/ML UNITS SQ SCH (21:28)
[2021-08-19] MEDS ORDERED: INSULIN (NOVOLOG) ASPART 100 UNITS/ML 10ML VIAL ONE ×4 (04:04→21:34)
[2021-08-19] MEDS: BUPRENORPHINE/NALOXONE 8 MG/2 MG FILM PACKET SL SCH ×2 (06:39→18:40)
[2021-08-19] MEDS: GABAPENTIN 400 MG CAPSULE PO SCH ×3 (06:39→21:00)
[2021-08-19] MEDS: INSULIN SLIDING SCALE (NOVOLOG) 1 VIAL SQ SCH ×4 (06:42→21:02)
[2021-08-19] MEDS: NICOTINE 10 MG CARTRIDGE (INHALER) IH PRN ×5 (06:43→21:02)
[2021-08-19] MEDS: Insulin (LOG) Aspart 100 UNITS/ML VIAL SQ SCH ×3 (06:43→16:28)
[2021-08-19] MEDS: METHOCARBAMOL 500 MG TABLET PO SCH ×4 (10:25→21:00)
[2021-08-19] MEDS: BACITRACIN 0.9 GM PACKET TP SCH ×2 (10:25→21:02)
[2021-08-19] MEDS: FERROUS SO4 325 MG TABLET (FP) PO SCH (10:25)
[2021-08-19] MEDS: METHYL SALICYLATE/MENTHOL OINT 30 GM TUBE TP SCH ×2 (10:25→21:02)
[2021-08-19] MEDS: NYSTATIN POWDER 100,000 UNITS/GM - 15 GM TOPICAL POWDER TP SCH ×2 (10:26→21:02)
[2021-08-19] MEDS: NICOTINE 14 MG/24 HOURS TOPICAL PATCH TD SCH (10:26)
[2021-08-19] MEDS: PRENATAL VITAMINS W/ FOLIC ACID TABLET (FP) PO SCH (10:26)
[2021-08-19] MEDS: hydrOXYzine PAMOATE 25 MG CAPSULE (FP) PO PRN (14:02)
[2021-08-19] MEDS: THIAMINE HCL 100 MG TABLET (FP) PO SCH (21:00)
[2021-08-19] MEDS: MELATONIN 5 MG TABLETS PO SCH (21:00)
[2021-08-19] MEDS: risperiDONE 1 MG TABLET PO SCH (21:00)
[2021-08-19] MEDS: IBUPROFEN 400 MG TABLET (FP) PO PRN (21:01)
[2021-08-19] MEDS: INSULIN (LEVEMIR) 100 UNITS/ML UNITS SQ SCH (21:02)
[2021-08-19] MEDS: MAG HYDROX/AL HYDROX/SIMETH 30 ML UNIT-DOSE CUP PO PRN (22:50)
[2021-08-20] MEDS ORDERED: INSULIN (NOVOLOG) ASPART 100 UNITS/ML 10ML VIAL ONE ×4 (03:15→21:57)
[2021-08-20] MEDS: NICOTINE 10 MG CARTRIDGE (INHALER) IH PRN ×4 (06:47→21:59)
[2021-08-20] MEDS: BUPRENORPHINE/NALOXONE 8 MG/2 MG FILM PACKET SL SCH ×2 (06:47→17:01)
[2021-08-20] MEDS: GABAPENTIN 400 MG CAPSULE PO SCH ×3 (06:47→21:53)
[2021-08-20] MEDS: INSULIN SLIDING SCALE (NOVOLOG) 1 VIAL SQ SCH ×4 (06:53→22:00)
[2021-08-20] MEDS: Insulin (LOG) Aspart 100 UNITS/ML VIAL SQ SCH ×3 (07:45→17:00)
[2021-08-20] MEDS: PRENATAL VITAMINS W/ FOLIC ACID TABLET (FP) PO SCH (10:39)
[2021-08-20] MEDS: METHOCARBAMOL 500 MG TABLET PO SCH ×4 (10:39→21:52)
[2021-08-20] MEDS: BACITRACIN 0.9 GM PACKET TP SCH ×2 (10:39→22:00)
[2021-08-20] MEDS: FERROUS SO4 325 MG TABLET (FP) PO SCH (10:39)
[2021-08-20] MEDS: NICOTINE 14 MG/24 HOURS TOPICAL PATCH TD SCH (10:39)
[2021-08-20] MEDS: NYSTATIN POWDER 100,000 UNITS/GM - 15 GM TOPICAL POWDER TP SCH ×2 (10:42→22:01)
[2021-08-20] MEDS: METHYL SALICYLATE/MENTHOL OINT 30 GM TUBE TP SCH ×2 (10:42→22:00)
[2021-08-20] MEDS: risperiDONE 1 MG TABLET PO SCH (21:52)
[2021-08-20] MEDS: THIAMINE HCL 100 MG TABLET (FP) PO SCH (21:53)
[2021-08-20] MEDS: MELATONIN 5 MG TABLETS PO SCH (21:53)
[2021-08-20] MEDS: hydrOXYzine PAMOATE 50 MG CAPSULE (FP) PO PRN (21:57)
[2021-08-20] MEDS: IBUPROFEN 400 MG TABLET (FP) PO PRN (21:59)
[2021-08-20] MEDS: INSULIN (LEVEMIR) 100 UNITS/ML UNITS SQ SCH (22:00)
[2021-08-21] MEDS: GABAPENTIN 400 MG CAPSULE PO SCH ×3 (05:51→21:34)
[2021-08-21] MEDS: BUPRENORPHINE/NALOXONE 8 MG/2 MG FILM PACKET SL SCH ×2 (05:52→18:32)
[2021-08-21] MEDS: NICOTINE 10 MG CARTRIDGE (INHALER) IH PRN ×5 (06:01→21:35)
[2021-08-21] MEDS ORDERED: INSULIN (NOVOLOG) ASPART 100 UNITS/ML 10ML VIAL ONE ×4 (08:07→21:41)
[2021-08-21] MEDS: INSULIN SLIDING SCALE (NOVOLOG) 1 VIAL SQ SCH ×4 (08:11→21:38)
[2021-08-21] MEDS: Insulin (LOG) Aspart 100 UNITS/ML VIAL SQ SCH ×3 (08:12→16:43)
[2021-08-21] MEDS: METHOCARBAMOL 500 MG TABLET PO SCH ×4 (10:01→21:34)
[2021-08-21] MEDS: FERROUS SO4 325 MG TABLET (FP) PO SCH (10:01)
[2021-08-21] MEDS: METHYL SALICYLATE/MENTHOL OINT 30 GM TUBE TP SCH ×2 (10:02→21:38)
[2021-08-21] MEDS: NICOTINE 14 MG/24 HOURS TOPICAL PATCH TD SCH (10:02)
[2021-08-21] MEDS: BACITRACIN 0.9 GM PACKET TP SCH ×2 (10:02→21:39)
[2021-08-21] MEDS: PRENATAL VITAMINS W/ FOLIC ACID TABLET (FP) PO SCH (11:02)
[2021-08-21] MEDS: NYSTATIN POWDER 100,000 UNITS/GM - 15 GM TOPICAL POWDER TP SCH ×2 (11:03→21:39)
[2021-08-21] MEDS: hydrOXYzine PAMOATE 50 MG CAPSULE (FP) PO PRN (18:32)
[2021-08-21] MEDS: MELATONIN 5 MG TABLETS PO SCH (21:34)
[2021-08-21] MEDS: risperiDONE 1 MG TABLET PO SCH (21:34)
[2021-08-21] MEDS: THIAMINE HCL 100 MG TABLET (FP) PO SCH (21:34)
[2021-08-21] MEDS: IBUPROFEN 400 MG TABLET (FP) PO PRN (21:35)
[2021-08-21] MEDS: INSULIN (LEVEMIR) 100 UNITS/ML UNITS SQ SCH (21:38)
[2021-08-22] MEDS: BUPRENORPHINE/NALOXONE 8 MG/2 MG FILM PACKET SL SCH ×2 (06:47→18:11)
[2021-08-22] MEDS: GABAPENTIN 400 MG CAPSULE PO SCH ×3 (06:47→21:37)
[2021-08-22] MEDS: hydrOXYzine PAMOATE 50 MG CAPSULE (FP) PO PRN ×2 (06:48→18:09)
[2021-08-22] MEDS: INSULIN SLIDING SCALE (NOVOLOG) 1 VIAL SQ SCH ×4 (06:50→21:43)
[2021-08-22] MEDS: Insulin (LOG) Aspart 100 UNITS/ML VIAL SQ SCH ×3 (07:38→16:37)
[2021-08-22] MEDS ORDERED: INSULIN (NOVOLOG) ASPART 100 UNITS/ML 10ML VIAL ONE ×4 (07:39→21:42)
[2021-08-22] MEDS: BACITRACIN 0.9 GM PACKET TP SCH ×2 (10:32→21:37)
[2021-08-22] MEDS: METHYL SALICYLATE/MENTHOL OINT 30 GM TUBE TP SCH ×2 (10:32→21:57)
[2021-08-22] MEDS: FERROUS SO4 325 MG TABLET (FP) PO SCH (10:32)
[2021-08-22] MEDS: NYSTATIN POWDER 100,000 UNITS/GM - 15 GM TOPICAL POWDER TP SCH ×2 (10:32→21:57)
[2021-08-22] MEDS: METHOCARBAMOL 500 MG TABLET PO SCH ×4 (10:32→21:37)
[2021-08-22] MEDS: PRENATAL VITAMINS W/ FOLIC ACID TABLET (FP) PO SCH (10:32)
[2021-08-22] MEDS: NICOTINE 14 MG/24 HOURS TOPICAL PATCH TD SCH (10:32)
[2021-08-22] MEDS: NICOTINE 10 MG CARTRIDGE (INHALER) IH PRN ×4 (10:33→21:38)
[2021-08-22] MEDS: risperiDONE 1 MG TABLET PO SCH (21:37)
[2021-08-22] MEDS: THIAMINE HCL 100 MG TABLET (FP) PO SCH (21:37)
[2021-08-22] MEDS: MELATONIN 5 MG TABLETS PO SCH (21:37)
[2021-08-22] MEDS: MAG HYDROX/AL HYDROX/SIMETH 30 ML UNIT-DOSE CUP PO PRN (21:38)
[2021-08-22] MEDS: INSULIN (LEVEMIR) 100 UNITS/ML UNITS SQ SCH (21:40)
[2021-08-23] MEDS ORDERED: INSULIN (NOVOLOG) ASPART 100 UNITS/ML 10ML VIAL ONE ×4 (03:09→21:15)
[2021-08-23] MEDS: GABAPENTIN 400 MG CAPSULE PO SCH ×3 (06:15→21:11)
[2021-08-23] MEDS: BUPRENORPHINE/NALOXONE 8 MG/2 MG FILM PACKET SL SCH ×2 (06:15→18:17)
[2021-08-23] MEDS: hydrOXYzine PAMOATE 50 MG CAPSULE (FP) PO PRN ×3 (06:16→21:11)
[2021-08-23] MEDS: NICOTINE 10 MG CARTRIDGE (INHALER) IH PRN ×5 (06:16→21:16)
[2021-08-23] MEDS: Insulin (LOG) Aspart 100 UNITS/ML VIAL SQ SCH ×3 (06:16→17:08)
[2021-08-23] MEDS: INSULIN SLIDING SCALE (NOVOLOG) 1 VIAL SQ SCH ×4 (06:18→21:15)
[2021-08-23] MEDS: PRENATAL VITAMINS W/ FOLIC ACID TABLET (FP) PO SCH (10:00)
[2021-08-23] MEDS: METHOCARBAMOL 500 MG TABLET PO SCH ×4 (10:00→21:11)
[2021-08-23] MEDS: BACITRACIN 0.9 GM PACKET TP SCH ×2 (10:00→21:11)
[2021-08-23] MEDS: NICOTINE 14 MG/24 HOURS TOPICAL PATCH TD SCH (10:00)
[2021-08-23] MEDS: FERROUS SO4 325 MG TABLET (FP) PO SCH (10:00)
[2021-08-23] MEDS: NYSTATIN POWDER 100,000 UNITS/GM - 15 GM TOPICAL POWDER TP SCH ×2 (10:00→21:11)
[2021-08-23] MEDS: METHYL SALICYLATE/MENTHOL OINT 30 GM TUBE TP SCH ×2 (10:00→21:11)
[2021-08-23] MEDS: THIAMINE HCL 100 MG TABLET (FP) PO SCH (21:11)
[2021-08-23] MEDS: risperiDONE 1 MG TABLET PO SCH (21:11)
[2021-08-23] MEDS: MELATONIN 5 MG TABLETS PO SCH (21:13)
[2021-08-23] MEDS: INSULIN (LEVEMIR) 100 UNITS/ML UNITS SQ SCH (21:15)
[2021-08-24] MEDS ORDERED: INSULIN (NOVOLOG) ASPART 100 UNITS/ML 10ML VIAL ONE ×5 (02:50→21:53)
[2021-08-24] MEDS: Insulin (LOG) Aspart 100 UNITS/ML VIAL SQ SCH ×3 (07:14→17:11)
[2021-08-24] MEDS: BUPRENORPHINE/NALOXONE 8 MG/2 MG FILM PACKET SL SCH ×2 (07:14→18:17)
[2021-08-24] MEDS: GABAPENTIN 400 MG CAPSULE PO SCH ×3 (07:14→21:44)
[2021-08-24] MEDS: NICOTINE 10 MG CARTRIDGE (INHALER) IH PRN ×5 (07:15→22:02)
[2021-08-24] MEDS: hydrOXYzine PAMOATE 50 MG CAPSULE (FP) PO PRN (07:15)
[2021-08-24] MEDS: INSULIN SLIDING SCALE (NOVOLOG) 1 VIAL SQ SCH ×4 (07:17→21:51)
[2021-08-24] MEDS: PRENATAL VITAMINS W/ FOLIC ACID TABLET (FP) PO SCH (10:31)
[2021-08-24] MEDS: FERROUS SO4 325 MG TABLET (FP) PO SCH (10:31)
[2021-08-24] MEDS: METHOCARBAMOL 500 MG TABLET PO SCH ×4 (10:31→21:44)
[2021-08-24] MEDS: BACITRACIN 0.9 GM PACKET TP SCH ×2 (10:32→21:51)
[2021-08-24] MEDS: NYSTATIN POWDER 100,000 UNITS/GM - 15 GM TOPICAL POWDER TP SCH ×2 (10:32→21:51)
[2021-08-24] MEDS: METHYL SALICYLATE/MENTHOL OINT 30 GM TUBE TP SCH ×2 (10:32→21:51)
[2021-08-24] MEDS: MAG HYDROX/AL HYDROX/SIMETH 30 ML UNIT-DOSE CUP PO PRN (10:32)
[2021-08-24] MEDS: NICOTINE 14 MG/24 HOURS TOPICAL PATCH TD SCH (10:32)
[2021-08-24] MEDS: CLINDAMYCIN HCL 150 MG CAPSULE (FP) PO SCH ×2 (18:17→23:12)
[2021-08-24] MEDS: MELATONIN 5 MG TABLETS PO SCH (21:44)
[2021-08-24] MEDS: IBUPROFEN 400 MG TABLET (FP) PO PRN (21:44)
[2021-08-24] MEDS: THIAMINE HCL 100 MG TABLET (FP) PO SCH (21:44)
[2021-08-24] MEDS: risperiDONE 0.5 MG TABLET PO SCH (21:46)
[2021-08-24] MEDS: INSULIN (LEVEMIR) 100 UNITS/ML UNITS SQ SCH (21:51)
[2021-08-25] MEDS: CLINDAMYCIN HCL 150 MG CAPSULE (FP) PO SCH ×4 (06:22→23:24)
[2021-08-25] MEDS: BUPRENORPHINE/NALOXONE 8 MG/2 MG FILM PACKET SL SCH ×2 (06:22→18:24)
[2021-08-25] MEDS: GABAPENTIN 400 MG CAPSULE PO SCH ×3 (06:22→21:07)
[2021-08-25] MEDS: hydrOXYzine PAMOATE 50 MG CAPSULE (FP) PO PRN (06:22)
[2021-08-25] MEDS: NICOTINE 10 MG CARTRIDGE (INHALER) IH PRN ×5 (06:27→21:08)
[2021-08-25 07:03] VITALS: TEMP 98.4
[2021-08-25] MEDS ORDERED: INSULIN (NOVOLOG) ASPART 100 UNITS/ML 10ML VIAL ONE ×4 (07:13→21:43)
[2021-08-25] MEDS: Insulin (LOG) Aspart 100 UNITS/ML VIAL SQ SCH ×3 (07:22→16:39)
[2021-08-25] MEDS: INSULIN SLIDING SCALE (NOVOLOG) 1 VIAL SQ SCH ×4 (07:22→21:11)
[2021-08-25] MEDS: METHOCARBAMOL 500 MG TABLET PO SCH ×4 (10:05→21:07)
[2021-08-25] MEDS: FERROUS SO4 325 MG TABLET (FP) PO SCH (10:06)
[2021-08-25] MEDS: BACITRACIN 0.9 GM PACKET TP SCH ×2 (10:06→21:10)
[2021-08-25] MEDS: NICOTINE 14 MG/24 HOURS TOPICAL PATCH TD SCH (10:06)
[2021-08-25] MEDS: NYSTATIN POWDER 100,000 UNITS/GM - 15 GM TOPICAL POWDER TP SCH ×2 (10:06→21:10)
[2021-08-25] MEDS: PRENATAL VITAMINS W/ FOLIC ACID TABLET (FP) PO SCH (10:06)
[2021-08-25] MEDS: METHYL SALICYLATE/MENTHOL OINT 30 GM TUBE TP SCH ×2 (10:06→21:10)
[2021-08-25] MEDS: COLLOIDAL OATMEAL 1 BAR EACH TP PRN (10:08)
[2021-08-25] MEDS: IBUPROFEN 400 MG TABLET (FP) PO PRN (14:11)
[2021-08-25] MEDS: THIAMINE HCL 100 MG TABLET (FP) PO SCH (21:07)
[2021-08-25] MEDS: risperiDONE 0.5 MG TABLET PO SCH (21:07)
[2021-08-25] MEDS: MELATONIN 5 MG TABLETS PO SCH (21:07)
[2021-08-25] MEDS: INSULIN (LEVEMIR) 100 UNITS/ML UNITS SQ SCH (21:10)
[2021-08-26] MEDS: CLINDAMYCIN HCL 150 MG CAPSULE (FP) PO SCH (06:25)
[2021-08-26] MEDS: IBUPROFEN 400 MG TABLET (FP) PO PRN (06:25)
[2021-08-26] MEDS: BUPRENORPHINE/NALOXONE 8 MG/2 MG FILM PACKET SL SCH (06:25)
[2021-08-26] MEDS: GABAPENTIN 400 MG CAPSULE PO SCH (06:25)
[2021-08-26] MEDS: MAG HYDROX/AL HYDROX/SIMETH 30 ML UNIT-DOSE CUP PO PRN (06:38)
[2021-08-26] MEDS ORDERED: INSULIN (NOVOLOG) ASPART 100 UNITS/ML 10ML VIAL ONE (06:49)
[2021-08-26 06:50] VITALS: BP 125/79; PULSE 99
[2021-08-26] MEDS: Insulin (LOG) Aspart 100 UNITS/ML VIAL SQ SCH (06:54)
[2021-08-26] MEDS: INSULIN SLIDING SCALE (NOVOLOG) 1 VIAL SQ SCH (06:55)
[2021-08-26] MEDS: METHOCARBAMOL 500 MG TABLET PO SCH (09:02)
[2021-08-26] MEDS: PRENATAL VITAMINS W/ FOLIC ACID TABLET (FP) PO SCH (09:02)
[2021-08-26] MEDS: METHYL SALICYLATE/MENTHOL OINT 30 GM TUBE TP SCH (09:03)
[2021-08-26] MEDS: BACITRACIN 0.9 GM PACKET TP SCH (09:03)
[2021-08-26] MEDS: FERROUS SO4 325 MG TABLET (FP) PO SCH (09:03)
[2021-08-26] MEDS: NYSTATIN POWDER 100,000 UNITS/GM - 15 GM TOPICAL POWDER TP SCH (09:03)
[2021-08-26] MEDS: NICOTINE 14 MG/24 HOURS TOPICAL PATCH TD SCH (09:04)
[2021-08-26] MEDS ORDERED: PT OWN MED DRAWER 7, Y5N ONE (09:17)
== END 2021-08-26 09:12 | disposition home or self-care (01) | DRG 772 ==
LOC: YASAS 12:35 → Y3W 07-30 02:44
PROVIDERS: ADMIT Allergy & Immunology; ATTEND Allergy & Immunology
PROC: HZ42ZZZ Group Counseling for Substance Abuse Treatment, Cognitive-Behavioral (ICD-10-PCS; principal; 2021-07-30)
DX: F11.20 Opioid dependence, uncomplicated (principal); F14.20 Cocaine dependence, uncomplicated; F12.20 Cannabis dependence, uncomplicated; F17.210 Nicotine dependence, cigarettes, uncomplicated; F31.9 Bipolar disorder, unspecified; F41.9 Anxiety disorder, unspecified; F43.10 Post-traumatic stress disorder, unspecified; E11.42 Type 2 diabetes mellitus with diabetic polyneuropathy; Z79.4 Long term (current) use of insulin; L03.115 Cellulitis of right lower limb; L03.116 Cellulitis of left lower limb; K04.7 Periapical abscess without sinus; R60.0 Localized edema; Z86.59 Personal history of other mental and behavioral disorders; Z56.0 Unemployment, unspecified; Z59.00 Homelessness unspecified
CPT/HCPCS: 36415; 80053; 81003; 82962; 85025; 85027; 86780; 86803; 87522; 90686; C9803; J2794; U0003; U0005

== ENCOUNTER 2021-07-29 20:17 | Emergency (ER) | payer OTHER ==
[2021-07-29 20:24] VITALS: BP 113/76; PULSE 94; TEMP 98.4; BMI 24.5
[2021-07-30] MEDS ORDERED: IBUPROFEN 400 MG TABLET (FP) PO PRN (02:06)
[2021-07-30] MEDS ORDERED: MAG HYDROX/AL HYDROX/SIMETH 30 ML UNIT-DOSE CUP PO PRN (02:06)
[2021-07-30] MEDS ORDERED: guaiFENesin 200 MG/10 ML 10 ML UNIT-DOSE CUPS PO PRN (02:06)
[2021-07-30] MEDS ORDERED: MAGNESIUM CITRATE 300 ML BOTTLE PO PRN (02:06)
[2021-07-30] MEDS ORDERED: NICOTINE POLACRILEX 2 MG GUM BC PRN (02:06)
[2021-07-30] MEDS ORDERED: P-EPHED 60MG/TRIPROLIDI 2.5MG TABLET PO PRN (02:06)
[2021-07-30] MEDS ORDERED: ACETAMINOPHEN 325 MG TABLET (FP) PO PRN (02:06)
[2021-07-30] MEDS ORDERED: LOPERAMIDE HCL 2 MG CAPSULE PO PRN (02:06)
[2021-07-30] MEDS ORDERED: MAGNESIUM HYDROX 2400MG/30ML ORAL SUSPENSION 30 ML CUP PO PRN (02:06)
[2021-07-30] MEDS ORDERED: PRENATAL VITAMINS W/ FOLIC ACID TABLET (FP) PO SCH (10:00)
[2021-07-30] MEDS ORDERED: NICOTINE 14 MG/24 HOURS TOPICAL PATCH TD SCH (10:00)
[2021-07-30] MEDS ORDERED: THIAMINE HCL 100 MG TABLET (FP) PO SCH (22:00)
[2021-07-30] MEDS ORDERED: MELATONIN 5 MG TABLETS PO SCH (22:00)
== END 2021-07-29 23:30 | disposition short-term general hospital (02) ==
LOC: JER 20:17
DX: T80.89XA Other complications following infusion, transfusion and therapeutic injection, initial encounter (principal)
CPT/HCPCS: 93970-TC; 99284-25